=== PATIENT | female | born 1980 | race Caucasian/White ===

== ENCOUNTER 2019-11-18 07:28 | Day surgery (SDC) | payer MEDICAID, SELFPAY ==
[~2019-11-18] VITALS: Ht 165.1 cm; Wt 54.4 kg
[2019-11-18 08:03] LABS: HCG,QUAL RESULT NEGATIVE (NEGATIVE)
[2019-11-18] MEDS ORDERED: LR 1,000 ML IV SCH (15:47)
[2019-11-18] MEDS ORDERED: LR 1,000 ML IV.SOLN IV ONE (15:57)
[2019-11-18] MEDS ORDERED: ONDANSETRON HCL 4 MG/2 ML VIAL ONE (15:57)
[2019-11-18] MEDS ORDERED: PROPOFOL 200MG/ 20ML VIAL (DIPRIVAN) IV ONE (15:57)
[2019-11-18] MEDS ORDERED: EPINEPHrine 1 MG/ML AMP ONE (15:57)
[2019-11-18] MEDS ORDERED: DEXAMETHASONE SOD PHOSPHATE 4 MG/ML VIAL ONE (15:57)
[2019-11-18] MEDS ORDERED: SEVOFLURANE 15 MIN GAS INH ONE (15:57)
[2019-11-18] MEDS ORDERED: NS IRRIG SOLN 1000 ML IR ONE (15:57)
[2019-11-18] MEDS ORDERED: SUCCINYLCHOLINE CHLORIDE 20 MG/ML(QUELICIN) ONE (15:57)
[2019-11-18] MEDS ORDERED: LIDOCAINE/EPI 1% 1:100000 20 ML VIAL INJ ONE (15:57)
[2019-11-18] MEDS ORDERED: MUPIROCIN 2% TOPICAL OINTMENT 22 GM ONE (15:57)
[2019-11-18] MEDS ORDERED: fentaNYL CITRATE/PF 100 MCG/2 ML AMP ONE (15:57)
[2019-11-18] MEDS ORDERED: ROCURONIUM BROMIDE 10 MG/ML (ZEMURON) ONE (15:57)
[2019-11-18] MEDS ORDERED: ONDANSETRON HCL 4 MG/2 ML VIAL IVP PRN (16:00)
[2019-11-18] MEDS ORDERED: HYDROmorphone 1 MG INJ. 1 MG/ML AMPUL IVP ONE (16:45)
[2019-11-18] MEDS ORDERED: HYDROmorphone 1 MG INJ. 1 MG/ML AMPUL ONE (16:55)
[2019-11-18 17:37] VITALS: BP_SYST 122
== END 2019-11-18 19:00 | disposition home or self-care (01) ==
LOC: SDS 07:28 → SMU 07:29 → SDS 19:00
PROVIDERS: ATTEND Otolaryngology
DX: J34.2 Deviated nasal septum (principal); J34.89 Other specified disorders of nose and nasal sinuses; J34.3 Hypertrophy of nasal turbinates; G47.33 Obstructive sleep apnea (adult) (pediatric); Z99.89 Dependence on other enabling machines and devices; K21.9 Gastro-esophageal reflux disease without esophagitis
CPT/HCPCS: 30140; 30520; 84703; 88305; J0171; J0330; J1100; J1170; J2405; J2704; J3010; J7120